=== PATIENT | male | born 1960 | race Two or more races ===

== ENCOUNTER 2017-10-29 18:02 | Emergency (ER) | payer MEDICAID ==
--- NOTE | 2017-10-29 19:42 | EDM.PDOC ---
ED HPI GENERAL MEDICAL PROBLEM - General Chief Complaint: Gastrointestinal Problem Stated Complaint: PAIN Time Seen by Provider: 10/29/17 19:27 - History of Present Illness INITIAL COMMENTS - FREE TEXT/NARRATIVE: HISTORY AND PHYSICAL: History of present illness: Patient is a 57-year-old male who denies stated medical history and presents with a recurrent ER visit complaint of itching at his rectum and discomfort and bleeding with bowel movements. The patient was last seen at [facility] at August 23 and was evaluated there but he says that he has not followed up. He has had 9 ER visits to the [facility] over 2017 for a variety of GI complaints but is not following up. He says he has a provider but he has not seen that doctor. Patient says he has no abdominal pain no fever no vomiting and he knows he has issues with his prostate and takes Flomax. Patient says that whenever he has a bowel movement there is a lot of pain in the area but is not taking a stool softener and he drinks a lot of caffeinated products throughout the day. He also says there is a lot of itching and he has been using [id number] hydrocortisone which is not working. When he has bleeding in his bowel movements it is only scant. Review of systems: As per history of present illness and below otherwise all systems reviewed and negative. Past medical history: As per history of present illness and as reviewed below otherwise noncontributory. Surgical history: As per history of present illness and as reviewed below otherwise noncontributory. Social history: No reported history of drug or alcohol abuse. Family history: As per history of present illness and as reviewed below otherwise noncontributory. Physical exam: Gen.: Well-developed well-nourished man who is nontoxic and vital signs have been reviewed by me. HEENT: Atraumatic, normocephalic, pupils reactive, negative for conjunctival pallor or scleral icterus, mucous membranes moist, throat clear, neck supple, nontender, trachea midline. Lungs: Clear to auscultation, breath sounds equal bilaterally, chest nontender. Heart: S1S2, regular rate and rhythm no overt murmurs Abdomen: Soft, nondistended, nontender. Negative for masses or hepatosplenomegaly. Negative for costovertebral tenderness. Pelvis: Stable nontender. Genitourinary: Deferred. Rectal: There are no overt masses or lesions and no fluctuance or fullness. Tone is normal. The entire area of the perianal skin looks very wet and irritated and there are several areas of fissures and variety of stages of healing. There is no gross tenderness here. On digital exam there is scant stool in the vault and the prostate is enlarged but smooth and there are no internal masses appreciated. Extremities: Atraumatic, negative for cords or calf pain. Neurovascular unremarkable. Neuro: Awake, alert, oriented. Cranial nerves II through XII unremarkable. Cerebellum unremarkable. Motor and sensory unremarkable throughout. Exam nonfocal. Diagnostics: [] Therapeutics: [] I discussed with the patient that he needs to stop coming to ER as and that he does need to connect with his provider at home or one of our providers in the clinic for further care and potentially see a specialist for these issues. I will give him Proctosol as well as recommendations for grvm-dro-aobrqgm meds that he can try. I will also recommend that he uses a stool softener. Told him that I do not appreciate any evidence of a hemorrhoid at this time. Impression: Perianal/perirectal itching and fissures Definitive disposition and diagnosis as appropriate pending reevaluation and review of above. Rectal Pain Score (Numeric/FACES): 8 - Related Data Allergies Allergy/AdvReac Type Severity Reaction Status Date / Time No Known Allergies Allergy Verified 10/29/17 19:00 Home Meds: Home Meds Aspirin [Ecotrin] 81 mg PO DAILY 01/29/14 [History] Losartan [Cozaar] 50 mg PO DAILY 01/29/14 [History] Finasteride [Proscar] 5 mg PO DAILY 10/29/17 [History] Tamsulosin [Flomax] 0.4 mg PO DAILY 10/29/17 [History] Past Medical History HEENT History: Reports: Impaired Vision Other HEENT History: Glasses Cardiovascular History: Reports: Hypertension Genitourinary History: Reports: BPH Neurological History: Reports: Other (See Below) - Past Surgical History GI Surgical History: Reports: Appendectomy Musculoskeletal Surgical History: Reports: Arthroscopic Knee, Carpal Tunnel Social & Family History - Family History Family Medical History: Noncontributory - Tobacco Use Smoking Status *Q: Never Smoker Second Hand Smoke Exposure: No - Caffeine Use Caffeine Use: Reports: Coffee - Alcohol Use Days Per Week of Alcohol Use: 0 - Recreational Drug Use Recreational Drug Use: No - Living Situation & Occupation Living situation: Reports: , Other Occupation: Employed ED ROS GENERAL - Review of Systems Review Of Systems: ROS reveals no pertinent complaints other than HPI. ED EXAM, GENERAL - Physical Exam Exam: See Below (See dictation) Course - Vital Signs Last Recorded V/S: Last Vital Signs Temp 36.9 C 10/29/17 18:58 Pulse 74 10/29/17 18:58 Resp 18 10/29/17 18:58 BP 111/67 10/29/17 18:58 Pulse Ox 94 L 10/29/17 18:58 Departure - Departure Time of Disposition: 19:40 Disposition: Home, Self-Care 01 Condition: Good Clinical Impression: Anal itching, Anal fissure - Discharge Information Referrals: PCP,None [Primary Care Provider] - Additional Instructions: The following information is given to patients seen in the emergency department who are being discharged to home. This information is to outline your options for follow-up care. We provide all patients seen in our emergency department with a follow-up referral. The need for follow-up, as well as the timing and circumstances, are variable depending upon the specifics of your emergency department visit. If you don't have a primary care physician on staff, we will provide you with a referral. We always advise you to contact your personal physician following an emergency department visit to inform them of the circumstance of the visit and for follow-up with them and/or the need for any referrals to a consulting specialist. The emergency department will also refer you to a specialist when appropriate. This referral assures that you have the opportunity for followup care with a specialist. All of these measure are taken in an effort to provide you with optimal care, which includes your followup. Under all circumstances we always encourage you to contact your private physician who remains a resource for coordinating your care. When calling for followup care, please make the office aware that this follow-up is from your recent emergency room visit. If for any reason you are refused follow-up, please contact the [facility] emergency department at and ask to speak to the emergency department charge nurse. [facility] Primary care- [place] [id number] Please take an [id number] stool softener such as Colace and try to reduce your caffeine intake and take more fluids such as water Gatorade and juices. Please fill the prescription for Proctosol and use twice a day for the next one week. Please also l ask the pharmacist for [id number] Calmoseptine to use twice a day to help protect the area and allowed to heal naturally. Please call and follow-up with our clinic providers this week or your clinic provider. Return to ER as needed and as discussed
[2017-10-29 19:57] VITALS: BP 109/71
== END 2017-10-29 19:54 | disposition home or self-care (01) ==
LOC: MW.ED 18:02
DX: K60.2 Anal fissure, unspecified (principal); I10 Essential (primary) hypertension; Z79.82 Long term (current) use of aspirin; Z79.899 Other long term (current) drug therapy; Z90.49 Acquired absence of other specified parts of digestive tract
CPT/HCPCS: 99282